=== PATIENT | male | born 1985 | race Caucasian/White ===

== ENCOUNTER 2021-05-23 19:39 | Emergency (ER) | payer OTHER ==
[~2021-05-23 19:39] MED LIST: COREG12.5 MG PO; METFORMIN HCL500 MG PO; MICRONASE5 MG PO; NORVASC5 MG PO; PRADAXA150 MG PO; PRINIVIL20 MG PO; PROTONIX 40MG T40 MG PO; VOLTAREN **OUT75 MG PO
[2021-05-23 20:21] LABS: BASOPHIL 0.5 % (0-2); EOSINOPHIL 1.8 % (0-5); HCT 39.2 % (42.0-52.0); HGB 13.5 g/dl (13.2-18.0); LYMPHOCYTE 39.3 % (15-48); MCH 30.9 pg (25.0-31.0); MCHC 34.4 g/dL (32.0-36.0); MCV 89.7 fL (78.0-100.0); MONOCYTE 7.9 % (0-12); MPV 10.1 fL (6.0-9.5); NEUTROPHIL 50.2 % (41-80); NRBC 0; PLT 233 K/uL (150-400); RBC 4.37 M/uL (4.70-6.00); RDW 13.6 % (11.5-14.0); WBC 6.1 K/uL (4.0-10.5)
[2021-05-23 20:33] LABS: PROTHROMBIN TIME 12.5 SECONDS (11.4-13.6); PTT 28.4 SECONDS (22.2-34.7)
[2021-05-23 20:34] LABS: D-DIMER 1.34 ug/mLFEU (0.00-0.41)
[2021-05-23 20:39] LABS: BUN/CREAT RATIO (CALC) 12.3 RATIO; CREATININE 0.65 mg/dL (0.67-1.17)
[2021-05-23] MEDS ORDERED: NORCO 5-325 TA1 EACH PO (21:03)
== END 2021-05-23 21:15 | disposition home or self-care (01) ==
LOC: FER 19:39
PROVIDERS: Emergency Medicine Emergency Medical Services
DX: M25.571 Pain in right ankle and joints of right foot (principal); M79.661 Pain in right lower leg; R60.0 Localized edema; R06.2 Wheezing; S39.81XA Other specified injuries of abdomen, initial encounter; E11.65 Type 2 diabetes mellitus with hyperglycemia; F17.210 Nicotine dependence, cigarettes, uncomplicated; Z79.84 Long term (current) use of oral hypoglycemic drugs; Z86.718 Personal history of other venous thrombosis and embolism; Z86.711 Personal history of pulmonary embolism; Z88.0 Allergy status to penicillin
CPT/HCPCS: 36415; 71046; 80048; 83036; 85025; 85379; 85610; 85730; 93971; 94640; 94664; J1170